=== PATIENT | female | born 1985 | race Caucasian/White ===

== ENCOUNTER 2020-04-29 16:56 | Outpatient (CLI) | payer BC ==
[~2020-04-29] VITALS: Ht 157.5 cm; Wt 92.7 kg
[2020-04-29 17:15] VITALS: BP 130/62
== END 2020-04-29 19:30 | disposition home or self-care (01) ==
LOC: LDOP 16:56
PROVIDERS: ATTEND Obstetrics & Gynecology Maternal & Fetal Medicine
DX: O24.414 Gestational diabetes mellitus in pregnancy, insulin controlled (principal); Z3A.36 36 weeks gestation of pregnancy
CPT/HCPCS: 59025

== ENCOUNTER 2020-05-10 04:57 | Inpatient (IN) | payer BC ==
[~2020-05-10] VITALS: Ht 162.6 cm; Wt 93.2 kg
[2020-05-10] MEDS ORDERED: D5%-LACTATED RINGERS 1,000 ML IV SCH (05:29)
[2020-05-10] MEDS ORDERED: OXYTOCIN 30U/ 0.9% NaCL 500ML 500 ML IV ONE (05:29)
[2020-05-10] MEDS ORDERED: FENTANYL PF 100 MCG/2ML IV PRN (05:30)
[2020-05-10] MEDS ORDERED: CALCIUM CARBONATE 500 MG TAB.CHEW PO PRN (05:30)
[2020-05-10] MEDS ORDERED: ALUMINUM/MAG/SIMETHICONE 30 ML UDC PO PRN (05:30)
[2020-05-10] MEDS ORDERED: SODIUM CHLORIDE FLUSH 10ML SYR IVF PRN (05:30)
[2020-05-10] MEDS ORDERED: TERBUTALINE 1 MG/ML, 1ML IVPush PRN (05:30)
[2020-05-10] MEDS ORDERED: TERBUTALINE 1 MG/ML, 1ML SQ PRN (05:30)
[2020-05-10] MEDS ORDERED: ONDANSETRON 2MG/ML, 2ML IVPush PRN (05:30)
[2020-05-10] MEDS ORDERED: MISOPROSTOL 25 MCG TABLET VG PRN (05:30)
[2020-05-10] MEDS ORDERED: FENTANYL PF 100 MCG/2ML IVPush PRN (05:30)
[2020-05-10] MEDS ORDERED: MISOPROSTOL 25 MCG TABLET ONE ×2 (05:33→07:35)
[2020-05-10] MEDS ORDERED: OXYTOCIN 30U/ 0.9% NaCL 500ML 500 ML ONE ×2 (05:33→13:02)
[2020-05-10] MEDS ORDERED: NEWBORN KIT ONE (05:33)
[2020-05-10] MEDS: LACTATED RINGERS 1,000 ML IV SCH ×2 (05:40→06:39)
[2020-05-10 06:05] LABS: BASOPHILS # (AUTO) 0.06 x10^3/uL (0-0.1); BASOPHILS % (AUTO) 1 % (0-1); EOSINOPHILS # (AUTO) 0.19 x10^3/uL (0-0.4); EOSINOPHILS % (AUTO) 2 % (1-7); LYMPHOCYTES # (AUTO) 2.77 x10^3/uL (1-3.4); LYMPHOCYTES % (AUTO) 22 % (22-44); MD NO; MEAN CORPUSCULAR HEMOGLOBIN 29.2 pg (27.0-34.8); MEAN CORPUSCULAR VOLUME 88.4 fL (80-100); MEAN PLATELET VOLUME 7.8 fL (7.4-10.4); MONOCYTES # (AUTO) 0.63 x10^3/uL (0.2-0.8); MONOCYTES % (AUTO) 5 % (2-9); NEUTROPHILS # (AUTO) 8.72 x10^3/uL (1.8-6.8); NEUTROPHILS % (AUTO) 71 % (42-75); PLATELET COUNT 305 x10^3/uL (130-400); RED CELL DISTRIBUTION WIDTH 15.5 % (9.6-15.2)
[2020-05-10 06:44] VITALS: BP 110/55
[2020-05-10] MEDS ORDERED: PREN1TAB60 PO (07:09)
[2020-05-10] MEDS ORDERED: Insulin SQ-INSULIN (07:09)
[2020-05-10] MEDS ORDERED: MISOPROSTOL 25 MCG TABLET PO PRN (07:30)
[2020-05-10] MEDS ORDERED: BUPIVACAINE 0.25% ONE ×2 (13:19→14:44)
[2020-05-10] MEDS ORDERED: FENTANYL/BUPIV./NS/PF 250 ML EPIDCONT ONE (13:19)
[2020-05-10] MEDS ORDERED: LACTATED RINGERS 1,000 ML IVBOLUS PRN ×2 (13:30→14:00)
[2020-05-10] MEDS ORDERED: FENTANYL/BUPIV./NS/PF 250 ML EPIDCONT SCH (13:44)
[2020-05-10] MEDS ORDERED: LACTATED RINGERS 1,000 ML IV SCH (13:44)
[2020-05-10] MEDS ORDERED: EPHEDRINE 50 MG/ML, 1ML IVPush PRN (14:00)
[2020-05-10] MEDS ORDERED: FENTANYL PF 100 MCG/2ML ONE (15:15)
[2020-05-10] MEDS ORDERED: OXYTOCIN 30U/ 0.9% NaCL 500ML 500 ML IV SCH (16:18)
[2020-05-10] MEDS ORDERED: MISOPROSTOL 200 MCG TABLET PR PRN (16:30)
[2020-05-10] MEDS ORDERED: RHOGAM FROM BLOOD BANK 1 NOTE EA IM/IV ONE (16:30)
[2020-05-10] MEDS ORDERED: DOCUSATE 100 MG CAPSULE PO PRN (16:30)
[2020-05-10] MEDS ORDERED: OXYcodone/APAP 5/325MG TABLET PO PRN ×2 (16:30)
[2020-05-10] MEDS ORDERED: DIPH,PERTUSS(ACELL),TET VAC/PF NC IM-VACC PRN (16:30)
[2020-05-10] MEDS ORDERED: ACETAMINOPHEN 325 MG TABLET PO PRN ×2 (16:30)
[2020-05-10] MEDS ORDERED: IBUPROFEN 600 MG TABLET PO PRN (16:30)
[2020-05-10] MEDS ORDERED: METHYLERGONOVINE 0.2 MG/ML IM PRN (16:30)
[2020-05-10] MEDS ORDERED: CARBOPROST TROMETHAMINE 250 MCG/ML, 1ML IM PRN (16:30)
[2020-05-10] MEDS ORDERED: SIMETHICONE 80 MG CHEW TAB PO PRN (16:30)
[2020-05-11] MEDS ORDERED: PRENATAL VIT/IRON/FA 1 EACH TABLET PO SCH (09:00)
== END 2020-05-10 21:34 | disposition home or self-care (01) | DRG 806 ==
LOC: LDIP 04:57
PROVIDERS: ADMIT Obstetrics & Gynecology Maternal & Fetal Medicine; ATTEND Obstetrics & Gynecology Maternal & Fetal Medicine
PROC: 10E0XZZ Delivery of Products of Conception, External Approach (ICD-10-PCS; principal; 2020-05-10)
DX: O24.424 Gestational diabetes mellitus in childbirth, insulin controlled (principal); O36.4XX0 Maternal care for intrauterine death, not applicable or unspecified; Z37.1 Single stillbirth; Z3A.38 38 weeks gestation of pregnancy; E83.09 Other disorders of copper metabolism; O69.81X0 Labor and delivery complicated by cord around neck, without compression, not applicable or unspecified; O99.284 Endocrine, nutritional and metabolic diseases complicating childbirth; O77.0 Labor and delivery complicated by meconium in amniotic fluid; Z82.3 Family history of stroke; Z83.3 Family history of diabetes mellitus; Z20.828 Contact with and (suspected) exposure to other viral communicable diseases
CPT/HCPCS: 36415; 82962; 85025; 86592; 86850; 86900; 87635; G0378; J2590; J7120